=== PATIENT | male | born 1955 | race Caucasian/White ===

== ENCOUNTER → 2019-01-09 | Outpatient (CLI) | payer MEDICARE ==
[2019-01-09 16:41] LABS: ALBUMIN 4.6 gm/dL (3.5-5.0); BILIRUBIN,TOTAL 0.8 mg/dL (0.0-1.0); CALCIUM 9.7 mg/dL (8.4-10.2); CHOLESTEROL RISK RATIO 3.6; CREATININE, serum 0.88 mg/dL (0.66-1.25); TOTAL PROTEIN 7.7 gm/dL (6.4-8.2)
[2019-01-09 16:42] LABS: POTASSIUM 4.7 mmol/L (3.4-5.0)
[2019-01-09 23:29] LABS: CREATININE OTHER SOURCE 61 mg/dL (()); URINE MICROALBUMIN <0.5 mg/dL (0.0-1.7)
== END ==
LOC: ZCOL.LAB 16:22
PROVIDERS: Family Medicine
DX: Z12.5 Encounter for screening for malignant neoplasm of prostate (principal); E78.5 Hyperlipidemia, unspecified; E11.9 Type 2 diabetes mellitus without complications; M25.473 Effusion, unspecified ankle

== ENCOUNTER → 2019-07-23 | Outpatient (CLI) | payer MEDICARE | LOC: ZCOL.LAB 18:08 | DX: E11.9 Type 2 diabetes mellitus without complications (principal) ==